=== PATIENT | male | born 1970 | race Hispanic/Latino ===

== ENCOUNTER 2022-09-06 05:56 | Observation (INO) | payer BC ==
[2022-09-02 11:46] LABS: INR 1.03 (0.85-1.15); PROTHROMBIN TIME 11.2 SEC (9.6-11.6)
[2022-09-02 11:47] LABS: PARTIAL THROMBOPLASTIN TIME 29.4 SEC (26.3-35.5)
[2022-09-02 12:08] VITALS: BP 144/84
[~2022-09-06] VITALS: Ht 180.3 cm; Wt 89.8 kg
[2022-09-06] VITALS (28 sets, daily range): BP systolic 108–146; BP diastolic 56–89
[~2022-09-06 05:56] MED LIST: AUGMENTIN PO; TAMS-1 PO
[2022-09-06] MEDS ORDERED: CEFAZOLIN SODIUM 2 GM VIAL ONE (06:15)
[2022-09-06] MEDS ORDERED: LACTATED RINGERS 1000ML 1,000 ML IV ONE (06:15)
[2022-09-06] MEDS ORDERED: LACTATED RINGERS 1000ML 1,000 ML IV SCH (07:00)
[2022-09-06] MEDS ORDERED: MIDAZOLAM HCL 1 MG/ML 2ML VIAL ONE (07:03)
[2022-09-06] MEDS ORDERED: PROPOFOL 10 MG/ML 20ML VIAL IV ONE (07:03)
[2022-09-06] MEDS ORDERED: FENTANYL CITRATE PF 50 MCG/1 ML 2ML VIAL ONE ×2 (07:03→10:23)
[2022-09-06] MEDS ORDERED: ROCURONIUM 10MG/1ML SYR 10 MG/ML ML ONE (07:03)
[2022-09-06] MEDS ORDERED: ONDANSETRON 4MG INJ ONE (07:07)
[2022-09-06] MEDS ORDERED: TRANEXAMIC ACID 1000MG/10ML ONE (07:31)
[2022-09-06] MEDS ORDERED: PHENYLEPHRINE HCL 10 MG/ML 1ML VIAL IV ONE (07:55)
[2022-09-06] MEDS ORDERED: CEFAZOLIN SODIUM 2 GM VIAL IVPB ONE (08:00)
[2022-09-06] MEDS ORDERED: TRANEXAMIC ACID 1000MG/10ML IV ONE (08:00)
[2022-09-06] MEDS ORDERED: DEXAMETHASONE SOD PHOSPHATE 10MG/ML 1ML VIAL ONE (09:39)
[2022-09-06] MEDS ORDERED: NEOSTIGMINE 5MG/5ML SYR IV ONE (10:06)
[2022-09-06] MEDS ORDERED: GLYCOPYRROLATE 1 MG/5 ML SYRINGE ONE (10:06)
[2022-09-06] MEDS ORDERED: KETOROLAC 30MG VIAL (30MG/ML) ONE (10:17)
[2022-09-06] MEDS ORDERED: MORPHINE 4 MG SYG IVP PRN (10:30)
[2022-09-06] MEDS ORDERED: POTASSIUM CHLORIDE 10% ELIXIR 20 MEQ/15 ML UDCUP PO PRN (10:30)
[2022-09-06] MEDS ORDERED: POTASSIUM CHLORIDE 20MEQ/100ML 100 ML IV PRN (10:30)
[2022-09-06] MEDS ORDERED: HYDROCODONE/ACETAMINOPHEN 5/325 MG TAB PO PRN (10:30)
[2022-09-06] MEDS ORDERED: KCL 20 MEQ ERTAB PO PRN (10:30)
[2022-09-06] MEDS ORDERED: HYDROCODONE/ACETAMINOPHEN 10/325 MG TAB PO PRN (10:30)
[2022-09-06] MEDS ORDERED: ONDANSETRON 4MG INJ IVP PRN (10:30)
[2022-09-06] MEDS: 0.9%NACL 1000ML 1,000 ML IV SCH ×2 (10:30→19:34)
[2022-09-06] MEDS: ACETAMINOPHEN 1,000 MG/100 ML VIAL IV SCH ×3 (10:52→22:15)
[2022-09-06] MEDS: CEFAZOLIN SODIUM 1 GM VIAL IVPB SCH ×2 (14:50→22:15)
[2022-09-06] MEDS: IBUPROFEN 800MG + NS 250ML IV SCH ×2 (17:35→19:34)
[2022-09-06] MEDS: ASPIRIN 81 MG EC TAB PO SCH (19:34)
[2022-09-06] MEDS: FAMOTIDINE 20MG TAB PO SCH (19:34)
[2022-09-06] MEDS ORDERED: TAMSULOSIN HCL 0.4 MG CAP.ER.24H PO SCH (21:00)
[2022-09-07 01:30] VITALS: BP 121/76
[2022-09-07] MEDS: IBUPROFEN 800MG + NS 250ML IV SCH (05:06)
[2022-09-07 05:22] LABS: HEMATOCRIT 39.5 % (42-54); MEAN CORPUSCULAR HEMOGLOBIN 32.1 pg (27.0-33.0); MEAN CORPUSCULAR HGB CONC 34.2 g/dL (32.0-36.0); MEAN CORPUSCULAR VOLUME 93.8 fL (79-99); RED BLOOD CELL COUNT(AUTO) 4.21 MIL/uL (4.50-6.20); RED CELL DISTRIBUTION WIDTH 12.9 % (11.0-15.5); WHITE BLOOD COUNT (AUTO) 14.7 K/uL (4.8-10.8)
[2022-09-07 05:30] VITALS: BP 118/61
[2022-09-07 05:33] LABS: CREATININE 1.2 mg/dL (0.5-1.5); POTASSIUM 3.9 mmol/L (3.5-5.1)
[2022-09-07] MEDS: 0.9%NACL 1000ML 1,000 ML IV SCH (05:35)
[2022-09-07 08:07] VITALS: BP 110/58
[2022-09-07] MEDS ORDERED: POLYETHYLENE GLYCOL 3350 17 GM POWD.PACK PO SCH (09:00)
[2022-09-07] MEDS: FAMOTIDINE 20MG TAB PO SCH (09:26)
[2022-09-07] MEDS: ASPIRIN 81 MG EC TAB PO SCH (09:27)
[2022-09-07 11:49] VITALS: BP 114/62
[2022-09-09] MEDS ORDERED: BISACODYL 10 MG SUPP.RECT RC PRN (10:30)
== END 2022-09-07 18:00 | disposition home or self-care (01) ==
LOC: DAH 05:56 → DAHIP 05:57 → DAH 05:57 → 4DH 11:19
PROVIDERS: ADMIT Orthopaedic Surgery; ATTEND Orthopaedic Surgery
DX: M17.11 Unilateral primary osteoarthritis, right knee (principal); Z20.822 Contact with and (suspected) exposure to COVID-19; M17.31 Unilateral post-traumatic osteoarthritis, right knee; Z79.82 Long term (current) use of aspirin; Z68.27 Body mass index [BMI] 27.0-27.9, adult; Z79.899 Other long term (current) drug therapy; Z98.890 Other specified postprocedural states
CPT/HCPCS: 27447; S2900; 36415; 64447; 80048; 85027; 85610; 85730; 87426; 87641; 96365; 96366; 96367; 96368; 97039; G0378; J0690; J1100; J1741; J1885; J2250; J2370; J2405; J2704; J2710; J3010; J3490; J7030; J7120